=== PATIENT | female | born 1975 | race Caucasian/White ===

== ENCOUNTER 2021-03-28 05:47 | Observation (INO) | payer BC ==
[2021-03-28] MEDS ORDERED: HYDROmorphone 0.5 MG/0.5 ML SYRINGE IVP STA (06:20)
[2021-03-28] MEDS ORDERED: ONDANSETRON 4 MG/2 ML VIAL IVP STA (06:20)
[2021-03-28] MEDS ORDERED: SODIUM CHLORIDE 0.9% 1,000 ML IV STA ×2 (06:20→07:39)
--- NOTE | 2021-03-28 06:27 | ED ---
General Adult HPI - General Chief complaint: Abdominal Pain Stated complaint: Upper abd pain Time Seen by Provider: 03/28/21 06:03 Source: patient Mode of arrival: ambulatory Limitations: no limitations - History of Present Illness Initial comments: 46-year-old female without any significant past medical history presents to the emergency room for chief complaint of epigastric pain. Patient states she started to have epigastric pain at about 3:30 this morning or about 2 hours prior to arrival. Patient describes the pain as a squeezing pain in her e pigastric area. Patient denies any radiating pain. Denies pain radiating to the back. He denies tearing pain. Patient does admit to nausea and did vomit once. Patient reports this is happened a few times over the past month and her doctor thinks it is her gallbladder. She reports she is supposed to be having this evaluated but heard daughter just had a major surgery and she has been more focused on that. Patient denies fevers. Denies diarrhea.Patient has no other complaints at this time including shortness of breath, chest pain, nausea or vomiting, headache, or visual changes. - Related Data Home Medications Medication Instructions Recorded Confirmed No Known Home Medications 03/28/21 03/28/21 Allergies Allergy/AdvReac Type Severity Reaction Status Date / Time Sulfa (Sulfonamide Allergy Rash/Hives Verified 03/28/21 08:42 Antibiotics) Review of Systems ROS Statement: Those systems with pertinent positive or pertinent negative responses have been documented in the HPI. ROS Other: All systems not noted in ROS Statement are negative. Past Medical History Past Medical History: No Reported History Additional Past Medical History / Comment(s): CURRENTLY ON ANTIBIOTICS FOR RECENT UTI History of Any Multi-Drug Resistant Organisms: None Reported Past Surgical History: Hysterectomy, Tonsillectomy, Uterine Ablation Past Anesthesia/Blood Transfusion Reactions: No Reported Reaction Past Psychological History: No Psychological Hx Reported Smoking Status: Never smoker Past Alcohol Use History: Occasional Past Drug Use History: None Reported General Exam Limitations: no limitations General appearance: alert, anxious Head exam: Present: atraumatic, normocephalic, normal inspection Eye exam: Present: normal appearance, PERRL, EOMI. Absent: scleral icterus, conjunctival injection, periorbital swelling ENT exam: Present: normal exam, mucous membranes moist Neck exam: Present: normal inspection, full ROM. Absent: tenderness, meningismus, lymphadenopathy Respiratory exam: Present: normal lung sounds bilaterally. Absent: respiratory distress, wheezes, rales, rhonchi, stridor Cardiovascular Exam: Present: regular rate, normal rhythm, normal heart sounds. Absent: systolic murmur, diastolic murmur, rubs, gallop, clicks GI/Abdominal exam: Present: soft, tenderness (Epigastric and right upper quadrant tenderness), normal bowel sounds. Absent: distended, guarding, rebound, rigid Neurological exam: Present: alert Course Vital Signs 03/28/21 05:51 Temperature 98.3 F Pulse Rate 118 H Respiratory 32 H Rate Blood Pressure 144/81 O2 Sat by Pulse 96 Oximetry EKG Findings - EKG Comments: EKG Findings:: Normal sinus rhythm, ventricular rate 80, AR interval 122, QTC 429 Medical Decision Making - Medical Decision Making Patient presents initially tachycardic and tachypnea. This is likely secondary to pain and anxiety. Patient does have significant epigastric tenderness with right upper quadrant tenderness. Positive Krishnamurthy sign. No lower abdominal tenderness. Her evaluation was initiated immediately. CBC unremarkable. White blood cell count was normal. CMP does reveal mild transaminitis. Lactic acid noted at 3.5. X-ray of the chest and abdomen were obtained which were unremarkable. No free air. Gallbladder ultrasound was abnormal however. Patient does have small stones or sludge within the gallbladder and was a mildly thickened wall of 5 mm with positive sonographic Krishnamurthy sign. Consistent with acute cholecystitis. Patient was given 2 L of fluid. Blood cultures obtained. Patient started on Zosyn. She does not have a surgeon and therefore on-call general surgeon Dr. Brady was contacted who did accept patient. - Lab Data Result diagrams: 03/28/21 06:26 03/28/21 06:26 Lab Results 03/28/21 03/28/21 03/28/21 Range/Units 06:26 06:26 06:26 WBC 8.5 (3.8-10.6) k/uL RBC 5.26 (3.80-5.40) m/uL Hgb 15.7 (11.4-16.0) gm/dL Hct 46.1 H (34.0-46.0) % MCV 87.7 (80.0-100.0) fL MCH 30.0 (25.0-35.0) pg MCHC 34.2 (31.0-37.0) g/dL RDW 12.8 (11.5-15.5) % Plt Count 324 (150-450) k/uL MPV 8.1 Neutrophils % 60 % Lymphocytes % 27 % Monocytes % 8 % Eosinophils % 2 % Basophils % 1 % Neutrophils # 5.1 (1.3-7.7) k/uL Lymphocytes # 2.3 (1.0-4.8) k/uL Monocytes # 0.7 (0-1.0) k/uL Eosinophils # 0.2 (0-0.7) k/uL Basophils # 0.1 (0-0.2) k/uL Sodium (137-145) mmol/L Potassium (3.5-5.1) mmol/L Chloride (98-107) mmol/L Carbon Dioxide (22-30) mmol/L Anion Gap mmol/L BUN (7-17) mg/dL Creatinine (0.52-1.04) mg/dL Est GFR (CKD-EPI)AfAm (>60 ml/min/1.73 sqM) Est GFR (CKD-EPI)NonAf (>60 ml/min/1.73 sqM) Glucose (74-99) mg/dL Plasma Lactic Acid Wayne (0.7-2.0) mmol/L Calcium (8.4-10.2) mg/dL Total Bilirubin (0.2-1.3) mg/dL AST (14-36) U/L ALT (4-34) U/L Alkaline Phosphatase (38-126) U/L Total Protein (6.3-8.2) g/dL Albumin (3.5-5.0) g/dL Amylase (30-110) U/L Lipase (23-300) U/L Urine Color Yellow Urine Appearance Cloudy H (Clear) Urine pH 6.0 (5.0-8.0) Ur Specific Nichols 1.027 (1.001-1.035) Urine Protein Negative (Negative) Urine Glucose (UA) Negative (Negative) Urine Ketones 1+ H (Negative) Urine Blood Trace H (Negative) Urine Nitrite Negative (Negative) Urine Bilirubin Negative (Negative) Urine Urobilinogen 2.0 (<2.0) mg/dL Ur Leukocyte Esterase Negative (Negative) Urine RBC 5 (0-5) /hpf Urine WBC 2 (0-5) /hpf Ur Squamous Epith Cells 2 (0-4) /hpf Urine Mucus Occasional H (None) /hpf Urine HCG, Qual Not Detected (Not Detectd) 03/28/21 03/28/21 Range/Units 06:26 06:26 WBC (3.8-10.6) k/uL RBC (3.80-5.40) m/uL Hgb (11.4-16.0) gm/dL Hct (34.0-46.0) % MCV (80.0-100.0) fL MCH (25.0-35.0) pg MCHC (31.0-37.0) g/dL RDW (11.5-15.5) % Plt Count (150-450) k/uL MPV Neutrophils % % Lymphocytes % % Monocytes % % Eosinophils % % Basophils % % Neutrophils # (1.3-7.7) k/uL Lymphocytes # (1.0-4.8) k/uL Monocytes # (0-1.0) k/uL Eosinophils # (0-0.7) k/uL Basophils # (0-0.2) k/uL Sodium 141 (137-145) mmol/L Potassium 5.0 (3.5-5.1) mmol/L Chloride 108 H (98-107) mmol/L Carbon Dioxide 18 L (22-30) mmol/L Anion Gap 15 mmol/L BUN 11 (7-17) mg/dL Creatinine 0.80 (0.52-1.04) mg/dL Est GFR (CKD-EPI)AfAm >90 (>60 ml/min/1.73 sqM) Est GFR (CKD-EPI)NonAf 90 (>60 ml/min/1.73 sqM) Glucose 150 H (74-99) mg/dL Plasma Lactic Acid Wayne 3.5 H* (0.7-2.0) mmol/L Calcium 9.4 (8.4-10.2) mg/dL Total Bilirubin 0.7 (0.2-1.3) mg/dL AST 112 H (14-36) U/L ALT 133 H (4-34) U/L Alkaline Phosphatase 111 (38-126) U/L Total Protein 7.6 (6.3-8.2) g/dL Albumin 4.6 (3.5-5.0) g/dL Amylase 95 (30-110) U/L Lipase 132 (23-300) U/L Urine Color Urine Appearance (Clear) Urine pH (5.0-8.0) Ur Specific Nichols (1.001-1.035) Urine Protein (Negative) Urine Glucose (UA) (Negative) Urine Ketones (Negative) Urine Blood (Negative) Urine Nitrite (Negative) Urine Bilirubin (Negative) Urine Urobilinogen (<2.0) mg/dL Ur Leukocyte Esterase (Negative) Urine RBC (0-5) /hpf Urine WBC (0-5) /hpf Ur Squamous Epith Cells (0-4) /hpf Urine Mucus (None) /hpf Urine HCG, Qual (Not Detectd) Disposition Clinical Impression: Cholecystitis, Lactic acidosis Disposition: ADMITTED IP TO THIS HOSP Is patient prescribed a controlled substance at d/c from ED?: No Referrals: Jai Mcneil MD [Primary Care Provider] - 1-2 days Time of Disposition: 08:46
[2021-03-28 06:52] LABS: Basophils # (A) 0.1 k/uL (0-0.2); Basophils % (A) 1 %; Eosinophils # (A) 0.2 k/uL (0-0.7); Eosinophils % (A) 2 %; HCT 46.1 % (34.0-46.0); HGB 15.7 gm/dL (11.4-16.0); Lymphocytes # (A) 2.3 k/uL (1.0-4.8); Lymphocytes % (A) 27 %; MCHC 34.2 g/dL (31.0-37.0); MCV 87.7 fL (80.0-100.0); Mean Platelet Volume 8.1; Monocytes # (A) 0.7 k/uL (0-1.0); Monocytes % (A) 8 %; Neutrophils # (A) 5.1 k/uL (1.3-7.7); Neutrophils % (A) 60 %; Platelet Count 324 k/uL (150-450); RBC 5.26 m/uL (3.80-5.40); RDW 12.8 % (11.5-15.5); WBC 8.5 k/uL (3.8-10.6)
--- NOTE | 2021-03-28 06:54 | XR ---
EXAMINATION TYPE: XR chest 2V DATE OF EXAM: 03/28/2021 COMPARISON: NONE HISTORY: Chest pain into the stomach. TECHNIQUE: Frontal and lateral views of the chest are obtained. FINDINGS: Somewhat low lung volumes. There is no suspicious focal air space opacity, pleural effusio n, or pneumothorax seen. The cardiac silhouette size is within normal limits. The osseous structur es are intact. IMPRESSION: No acute cardiopulmonary process.
--- NOTE | 2021-03-28 06:55 | XR ---
EXAMINATION TYPE: XR KUB DATE OF EXAM: 03/28/2021 6:45 AM CLINICAL HISTORY: Epigastric pain. TECHNIQUE: Two Upright KUB images of the abdomen are obtained. COMPARISON: None. FINDINGS: Scattered gas is seen in non-distended small bowel loops. Gas and fecal material is seen in non-distended colon. There is no visceromegaly, pneumoperitoneum, or abnormal calcification apprecia taty. The lung bases are clear and the osseous structures are intact. IMPRESSION: Overall nonobstructive bowel gas pattern.
[2021-03-28] MEDS ORDERED: HYDROmorphone 1 MG/ML 1 ML SYRINGE IVP STA (07:08)
[2021-03-28 07:12] LABS: ALT 133 U/L (4-34); African American GFR (CKD) >90 (>60 ml/min/1.73 sqM); Amylase 95 U/L (30-110); Anion Gap 15 mmol/L; Blood Urea Nitrogen 11 mg/dL (7-17); Calcium 9.4 mg/dL (8.4-10.2); Carbon Dioxide 18 mmol/L (22-30); Chloride 108 mmol/L (98-107); Glucose 150 mg/dL (74-99); Lipase 132 U/L (23-300); Non-African American GFR(CKD) 90 (>60 ml/min/1.73 sqM); Sodium 141 mmol/L (137-145); Total Bilirubin 0.7 mg/dL (0.2-1.3)
[2021-03-28 07:35] LABS: AST 112 U/L (14-36); Albumin 4.6 g/dL (3.5-5.0); Alkaline Phosphatase 111 U/L (38-126); Total Protein 7.6 g/dL (6.3-8.2)
[2021-03-28] MEDS ORDERED: KETOROLAC 15 MG/ML 1 ML VIAL IVP STA (08:17)
[2021-03-28] MEDS ORDERED: LORazepam 2 MG/ML INJ IV STA ×2 (08:17→12:27)
--- NOTE | 2021-03-28 08:21 | US ---
EXAMINATION TYPE: US gallbladder DATE OF EXAM: 03/28/2021 COMPARISON: NONE CLINICAL HISTORY: pain. Severe epigastric pain. EXAM MEASUREMENTS: Liver Length: 11.1 cm Gallbladder Wall: 0.5 cm CBD: 0.3 cm Right Kidney: 9.6 x 5.2 x 5.0 cm Extensive overlying bowel gas, technically limited study. Pancreas: Obscured by bowel gas Liver: limited visualization, appears wnl Gallbladder: limited visualization, debris with comet tail artifact within, probable sludge, wall thi ckening Evidence for sonographic Krishnamurthy's sign: severe epigastric pain CBD: limited visualization Right Kidney: limited visualization, wnl as seen Suboptimal study. Extensive overlying bowel gas likely product of not normal prep. Pancreas suboptima lly evaluated. Visualized liver heterogeneous without ductal dilatation. Common bile duct not well se en, visualized portions not dilated. Gallbladder appears abnormal. Gallbladder shows internal mobile echoes suggesting small stones and/or sludge. Gallbladder wall mildly thickened at 5 mm with positive sonographic Krishnamurthy sign. IMPRESSION: Ultrasound findings consistent with acute cholecystitis given patient's symptoms of sever e epigastric pain.
[2021-03-28] MEDS ORDERED: PIPERACILLIN-TAZOBACTAM 3.375 GM in SODIUM CHLORIDE 0.9% 100 ML IVPB STA (08:34)
[2021-03-28 08:37] LABS: Appearance,Urine Cloudy (Clear); Bilirubin,Urine Negative (Negative); Blood,Urine Trace (Negative); Color,Urine Yellow; Glucose,Urine (UA) Negative (Negative); Ketones,Urine 1+ (Negative); Leukocyte Esterase,Urine Negative (Negative); Mucus,Urine Occasional /hpf; Nitrite,Urine Negative (Negative); Protein,Urine Negative (Negative); RBC,Urine 5 /hpf (0-5); Specific Gravity,Urine 1.027 (1.001-1.035); Squamous Epithelial Cell,Urine 2 /hpf (0-4); WBC,Urine 2 /hpf (0-5)
[2021-03-28] MEDS ORDERED: NALOXONE 0.4 MG/ML 1 ML VIAL IV PRN (08:50)
[2021-03-28] MEDS ORDERED: HYDROmorphone 1 MG/ML 1 ML SYRINGE IVP PRN (08:50)
[2021-03-28] MEDS ORDERED: ONDANSETRON 4 MG/2 ML VIAL IVP PRN (08:50)
[2021-03-28] MEDS: PANTOPRAZOLE 40 MG/10 ML VIAL IV SCH (11:19)
[2021-03-28] MEDS: SODIUM CHLORIDE 0.9% 1,000 ML IV SCH ×3 (11:20→23:40)
[2021-03-28] MEDS: PIPERACILLIN-TAZOBACTAM 3.375 GM in SODIUM CHLORIDE 0.9% 100 ML IVPB SCH ×2 (17:29→23:15)
[2021-03-28] MEDS ORDERED: SODIUM CHLORIDE 0.9% 2,000 ML IV ONE (18:56)
--- NOTE | 2021-03-28 18:56 | P.GSHP ---
History of Present Illness H&P Date: 03/28/21 CHIEF COMPLAINT: Acute cholecystitis HISTORY OF PRESENT ILLNESS: The patient is a 46 year old female who comes in a day history of epigastric and right upper quadrant abdominal pain. Her pain started after eating chicken teriyaki. She reports prior episode of epigastric pain and right upper quadrant abdominal pain in the last 2 years. She reports moderate to severe pain when she presented to the emergency room. Since admission and NPO status, her abdominal pain has improved. She still reports pressure along the chest. PAST MEDICAL HISTORY: See list and reviewed PAST SURGICAL HISTORY: See list and reviewed MEDICATIONS: See list and reviewed ALLERGIES: See list and reviewed SOCIAL HISTORY: See list and reviewed FAMILY HISTORY: See list and reviewed REVIEW OF ORGAN SYSTEMS: CONSTITUTIONAL: No fevers or chills. \ EYES: Denies any trouble with vision. No glasses. HEENT: No difficulties with hearing. No nosebleeds. No difficulty swallowing. RESPIRATORY: Denies pneumonia. Denies any troubles with breathing or dyspnea on exertion. CARDIOVASCULAR: Denies any chest pain, palpitations, or recent heart attacks. GASTROINTESTINAL: Has fatty food intolerance. Denies change in bowel habits and gas bloat. Has gastroesophageal reflux disease. GENITOURINARY: Denies any blood in urine or increased urinary frequency. NEUROLOGICAL: Denies any numbness or tingling along the distal extremities. No seizure disorders or headaches. MUSCULOSKELETAL: Denies any back pain, stiffness or joint arthritis. SKIN: No current skin cancer. No rash. PSYCHIATRIC: Denies current depression or suicidal thoughts. ENDOCRINE: Denies current thyroid disorders. Denies any blood sugar glucose intolerance. HEME/LYMPHATIC: Denies any lumps and bumps around the neck. No recent deep venou s thrombosis. ALLERGY/IMMUNOLOGY: No immunoglobulin therapy. No immune deficiencies. BREAST: Denies current breast lumps, pain or nipple discharge. Prior breast reduction. PHYSICAL EXAM: VITALS: Reviewed CONSTITUTIONAL: Well developed and in no acute distress. EYES: Conjuctivae without sclera icterus. Extraocular movements grossly intact. HEAD, EARS, NOSE, THROAT: Moist buccal mucosa. Head is atraumatic, normocephalic. Hears conversational speech. No nasal drainage. NECK: Supple. No JV distention. No thyroidomegaly. RESPIRATORY: Non-labored respirations and equal bilateral excursions. No gross wheezes. CARDIOVASCULAR: Regular rate and rhythm. Extremities without moderate edema. Palpable 2+ radial pulses. ABDOMEN: LYMPH: No neck lymphadenopathy. MUSCULOSKELETAL: Nail and fingers with good capillary refill. SKIN: Warm and well perfused with good skin turgor. NEUROLOGIC: Cranial nerves II through XII grossly intact. Sensation upper and extremities intact. No focal or lateralizing signs. PSYCH: Appropriate affect. Alert and oriented to person, place and time. Displays appropriate insight. CLINCAL LABS: Reviewed. AST and ALT elevated. WBC normal. Lactic acid elevated. IMAGING: Independently reviewed of right upper quadrant ultrasound with thickened gallbladder wall over 3-mm. Multiple gallstones identified. This is my independent interpretation. RADIOLOGY: Report reviewed of ultrasound with thickened gallbladder wall 5-mm and clinical acute cholecystitis. ASSESSMENT: 1. Acute cholecystitis due to gallstones 2. Lactic acidosis 3. Elevated liver enzymes. PLAN: 1. She comes in with acute cholecystitis and lactic acidosis. May have clear liquid diet tonight and for the morning. 2. NPO for lunch tomorrow. 3. Robotic cholecystectomy described with risks and benefits of common bile duct injury, subtotal cholecystectomy, infection, described. Past Medical History Past Medical History: No Reported History Additional Past Medical History / Comment(s): UTI, nephrolithiasis during /pt passed on her own. History of Any Multi-Drug Resistant Organisms: None Reported Past Surgical History: Breast Surgery, Hysterectomy, Tonsillectomy, Uterine Ablation Additional Past Surgical History / Comment(s): D&C x2, endometrial biopsy, bilateral breast reductions. Past Anesthesia/Blood Transfusion Reactions: No Reported Reaction Smoking Status: Never smoker - Past Family History Father Family Medical History: Congestive Heart Failure (CHF), Diabetes Mellitus Mother Family Medical History: Musculoskeletal Disorder, Neurologic Disorder Additional Family Medical History / Comment(s): MS Medications and Allergies Home Medications Medication Instructions Recorded Confirmed Type No Known Home Medications 03/28/21 03/28/21 History Allergies Allergy/AdvReac Type Severity Reaction Status Date / Time Sulfa (Sulfonamide Allergy Rash/Hives Verified 03/28/21 08:42 Antibiotics) Surgical - Exam Vital Signs Temp Pulse Resp BP Pulse Ox 98.3 F 118 H 32 H 144/81 96 03/28/21 05:51 03/28/21 05:51 03/28/21 05:51 03/28/21 05:51 03/28/21 05:51 Results - Labs 03/28/21 06:26 03/28/21 06:26 Abnormal Lab Results - Last 24 Hours (Table) 03/28/21 03/28/21 03/28/21 Range/Units 06:26 06:26 06:26 Hct 46.1 H (34.0-46.0) % Chloride 108 H (98-107) mmol/L Carbon Dioxide 18 L (22-30) mmol/L Glucose 150 H (74-99) mg/dL Plasma Lactic Acid Wayne (0.7-2.0) mmol/L AST 112 H (14-36) U/L ALT 133 H (4-34) U/L Urine Appearance Cloudy H (Clear) Urine Ketones 1+ H (Negative) Urine Blood Trace H (Negative) Urine Mucus Occasional H (None) /hpf 03/28/21 Range/Units 06:26 Hct (34.0-46.0) % Chloride (98-107) mmol/L Carbon Dioxide (22-30) mmol/L Glucose (74-99) mg/dL Plasma Lactic Acid Wayne 3.5 H* (0.7-2.0) mmol/L AST (14-36) U/L ALT (4-34) U/L Urine Appearance (Clear) Urine Ketones (Negative) Urine Blood (Negative) Urine Mucus (None) /hpf Diabetes panel 03/28/21 Range/Units 06:26 Sodium 141 (137-145) mmol/L Potassium 5.0 (3.5-5.1) mmol/L Chloride 108 H (98-107) mmol/L Carbon Dioxide 18 L (22-30) mmol/L BUN 11 (7-17) mg/dL Creatinine 0.80 (0.52-1.04) mg/dL Glucose 150 H (74-99) mg/dL Calcium 9.4 (8.4-10.2) mg/dL AST 112 H (14-36) U/L ALT 133 H (4-34) U/L Alkaline Phosphatase 111 (38-126) U/L Total Protein 7.6 (6.3-8.2) g/dL Albumin 4.6 (3.5-5.0) g/dL Calcium panel 03/28/21 Range/Units 06:26 Calcium 9.4 (8.4-10.2) mg/dL Albumin 4.6 (3.5-5.0) g/dL Pituitary panel 03/28/21 Range/Units 06:26 Sodium 141 (137-145) mmol/L Potassium 5.0 (3.5-5.1) mmol/L Chloride 108 H (98-107) mmol/L Carbon Dioxide 18 L (22-30) mmol/L BUN 11 (7-17) mg/dL Creatinine 0.80 (0.52-1.04) mg/dL Glucose 150 H (74-99) mg/dL Calcium 9.4 (8.4-10.2) mg/dL Adrenal panel 03/28/21 Range/Units 06:26 Sodium 141 (137-145) mmol/L Potassium 5.0 (3.5-5.1) mmol/L Chloride 108 H (98-107) mmol/L Carbon Dioxide 18 L (22-30) mmol/L BUN 11 (7-17) mg/dL Creatinine 0.80 (0.52-1.04) mg/dL Glucose 150 H (74-99) mg/dL Calcium 9.4 (8.4-10.2) mg/dL Total Bilirubin 0.7 (0.2-1.3) mg/dL AST 112 H (14-36) U/L ALT 133 H (4-34) U/L Alkaline Phosphatase 111 (38-126) U/L Total Protein 7.6 (6.3-8.2) g/dL Albumin 4.6 (3.5-5.0) g/dL Assessment and Plan (1) Acute cholecystitis due to biliary calculus Current Visit: Yes Status: Acute Code(s): K80.00 - CALCULUS OF GALLBLADDER W ACUTE CHOLECYST W/O OBSTRUCTION SNOMED Code(s): 15945125238039 (2) Elevated liver enzymes Current Visit: Yes Status: Acute Code(s): R74.8 - ABNORMAL LEVELS OF OTHER SERUM ENZYMES SNOMED Code(s): 067637814 (3) Lactic acidosis Current Visit: Yes Status: Acute Code(s): E87.2 - ACIDOSIS SNOMED Code(s): 05772663
[2021-03-28] MEDS: ACETAMINOPHEN IV (For NPO) 1,000 MG in EMPTY BAG 1 BAG IVPB SCH ×2 (19:28→23:15)
[2021-03-29] MEDS: ACETAMINOPHEN IV (For NPO) 1,000 MG in EMPTY BAG 1 BAG IVPB SCH ×2 (05:56→13:14)
[2021-03-29] MEDS ORDERED: SCOPOLAMINE 1.5MG/72HR PATCH TRANSDERM SCH (06:15)
[2021-03-29] MEDS: LACTATED RINGERS 1,000 ML IV SCH (07:52)
[2021-03-29] MEDS: HEPARIN SODIUM,PORCINE/PF 5,000 UNIT/0.5 ML SYRINGE SQ SCH ×2 (08:13→20:03)
[2021-03-29] MEDS: ONDANSETRON 4 MG/2 ML VIAL IVP SCH ×4 (08:13→23:11)
[2021-03-29] MEDS: PANTOPRAZOLE 40 MG/10 ML VIAL IV SCH (08:13)
[2021-03-29] MEDS: PIPERACILLIN-TAZOBACTAM 3.375 GM in SODIUM CHLORIDE 0.9% 100 ML IVPB SCH ×3 (08:13→23:10)
[2021-03-29] MEDS: SODIUM CHLORIDE 0.9% 1,000 ML IV SCH ×3 (08:14→22:13)
[2021-03-29 09:58] LABS: Basophils # (A) 0.06 X 10*3/uL (0.00-0.10); Eosinophils # (A) 0.22 X 10*3/uL (0.04-0.35); Eosinophils % (A) 3.5 %; HCT 41.9 % (37.2-46.3); Lymphocytes # (A) 2.33 X 10*3/uL (0.90-5.00); Lymphocytes % (A) 37.3 %; MCH 28.9 pg (27.0-32.0); MCV 93.1 fL (80.0-97.0); Mean Platelet Volume 11.6 fL (9.5-12.2); Monocytes # (A) 0.65 X 10*3/uL (0.20-1.00); Monocytes % (A) 10.4 %; Neutrophils # (A) 2.98 X 10*3/uL (1.80-7.70); Neutrophils % (A) 47.6 %; Platelet Count 239 X 10*3/uL (140-440); RDW 13.4 % (11.5-14.5); WBC 6.25 X 10*3/uL (4.50-10.00)
[2021-03-29 10:30] LABS: African American GFR (CKD) 103.2 (60.0-200.0); Albumin 3.3 g/dL (3.80-4.90); Albumin/Globulin Ratio 1.74 (1.60-3.17); Anion Gap 6.6 mmol/L (4.00-12.00); Calcium 8.8 mg/dL (8.7-10.3); Carbon Dioxide 22.4 mmol/L (21.6-31.8); Globulin 1.9 g/dL (1.6-3.3); Potassium 4.1 mmol/L (3.5-5.5); Total Protein 5.2 g/dL (6.2-8.2)
[2021-03-29] MEDS ORDERED: IV FLUID CONTINUATION 200 ML IV ONE (14:55)
[2021-03-29] MEDS ORDERED: DEXAMETHASONE SOD PHOSPHATE 4 MG/ML 1 ML VIAL IVP ONE (15:34)
[2021-03-29] MEDS ORDERED: MIDAZOLAM 2 MG/2 ML VIAL IVP ONE (15:35)
[2021-03-29] MEDS ORDERED: LACTATED RINGERS 1,000 ML IV ONE ×2 (16:29→18:18)
--- NOTE | 2021-03-29 17:09 | P.HPADDEND ---
H&P Addendum H&P Addendum Date: 03/29/21 Benefits and risks of robotic cholecystectomy described. LFTs and labs reviewed demonstrating improvement. Total bilirubin is mildly elevated. She reports moderate improvement of her epigastric pain. Discharge criteria are reviewed including able to tolerate diet, pain being controlled and voiding spontaneously also reviewed. All questions addressed and answered.
[2021-03-29] MEDS ORDERED: SUCCINYLCHOLINE CHLORIDE 100 MG/5 ML SYR IV ONE (17:17)
[2021-03-29] MEDS ORDERED: MIDAZOLAM 2 MG/2 ML VIAL ONE (17:17)
[2021-03-29] MEDS ORDERED: HYDROmorphone (PF) 1 MG/ML ONE (17:17)
[2021-03-29] MEDS ORDERED: INDOCYANINE GREEN 25 MG VIAL IV ONE (17:17)
[2021-03-29] MEDS ORDERED: ROCURONIUM 10 MG/ML (5 ML VIAL) IV ONE (17:17)
[2021-03-29] MEDS ORDERED: NEOSTIGMINE 1 MG/ML 10 ML VIAL ONE (17:17)
[2021-03-29] MEDS ORDERED: GLYCOPYRROLATE 0.2 MG/ML 2 ML VIAL ONE (17:17)
[2021-03-29] MEDS ORDERED: KETOROLAC 15 MG/ML 1 ML VIAL ONE (17:17)
[2021-03-29] MEDS ORDERED: PROPOFOL 10 MG/ML 20 ML VIAL IV ONE (17:17)
[2021-03-29] MEDS ORDERED: LIDOCAINE 1% INJ 10MG/ML (20 ML MDV) ONE (17:17)
[2021-03-29] MEDS ORDERED: fentaNYL (PF) 50 MCG/ML 2 ML AMP ONE (17:17)
[2021-03-29] MEDS ORDERED: LIDOCAINE 2%-EPI 1:100,000 20 ML VIAL SQ ONE (17:41)
[2021-03-29] MEDS ORDERED: ONDANSETRON 4 MG/2 ML VIAL IVP ONE (18:46)
[2021-03-29] MEDS: diphenhydrAMINE 50 MG/ML 1 ML VIAL IVP ONE ×2 (18:47→19:04)
[2021-03-29] MEDS ORDERED: METOCLOPRAMIDE 5 MG/ML 2 ML VIAL IVP PRN (18:57)
--- NOTE | 2021-03-29 19:02 | P.OP ---
Date of Procedure: 03/29/21 Description of Procedure: SURGEON: DOMENIC RAMOS MD PREOPERATIVE DIAGNOSES: 1. Acute cholecystitis due to cystic duct obstruction from gallstones 2. Lactic acidosis 3. Right upper quadrant/epigastric pain 4. Elevated liver enzymes POSTOPERATIVE DIAGNOSES: 1. Acute cholecystitis due to cystic duct obstruction from gallstones 2. Lactic acidosis 3. Right upper quadrant/epigastric pain 4. Elevated liver enzymes 5. Peritoneal adhesions, right upper quadrant OPERATION: Robotic-assisted da Zoya Xi laparoscopic cholecystectomy, multiport with FIREFLY ESTIMATED BLOOD LOSS: 10 mL. SPECIMENS REMOVED: Gallbladder. COMPLICATIONS: None. OPERATIVE FINDINGS: 1. Scarring over gallbladder with peritoneal adhesions, pericholecystic with features of chronic cholecystitis INDICATIONS: The patient is a 46-year-old female who presents with acute cholecystitis per ultrasound of gallbladder. Robotic assisted laparoscopic approach was described. Benefits and risks of the procedure including but not limited to bleeding, infection, injury to the biliary tree was described. Inf ormed consent was obtained. DESCRIPTION OF PROCEDURE: Patient was brought to the operating room, placed in supine position. After general induction, the abdomen had been prepped and draped in standard sterile fashion. The robotic da Zoya XI system was primed. After a timeout protocol was performed, the patient had been prepped and draped in standard sterile fashion. The patient was injected with indocyanine green. A 5 mm 0 degrees laparoscopic trocar entry was performed along the left upper quadrant. The abdomen insufflated to 15 mmHg pressure which was tolerated well. Diagnostic laparoscopy demonstrated no injury to bowel viscera or mesentery. The liver surface was unremarkable. Next, two 8 mm robotic ports were placed along the right upper abdomen. The camera 8-mm port was maintained along the epigastrium. Another 8 mm port was placed along the left upper abdominal wall after exchanging the 5 mm port. Please note that the ports were placed at least 10 to 15 cm away from the target anatomy of the gallbladder. The robot was docked along the left lateral abdomen. The patient was repositioned in reverse Trendelenburg position. Using a grasper for arm 3, a grasper for arm 4, including hook cautery for arm 1, the robotic system was docked and primed as described. Instruments were interchanged by the registrar assistant including hook cautery, Bovie cautery and clip appliers. I had sat at the console. The gallbladder was scarred with peritoneal adhesions. Lysis of adhesions was performed to free the gallbladder from the surrounding tissues. Next attention was brought to the infundibulum and cystic structures. The infundibulum and cystic duct were dissected free from surrounding tissues. The cystic duct was isolated. FIREFLY was used to identify the cystic artery and cystic structures. A critical view of safety was obtained. Large PLASTIC clips were used throughout the entire case. Using a clip polisher hand, 2 clips were placed at the junction of the infundibulum and cystic duct. The cystic duct was divided between clips. Next, the cystic artery was similarly clipped and cauterized. Electro-Bovie cautery was used to remove the gallbladder from the hepatic fossa. Hemostasis was checked and found to be adequate. The robot was undocked. I re-scrubbed into the case. Using a 10 mm Endo Catch bag via the left upper quadrant incision, the specimen was removed from the abdominal cavity. All pneumoperitoneum instruments were evacuated from the abdominal cavity. The incisions were reapproximated using 4-0 Monocryl in an interrupted subcuticular fashion. Fascial defects were less than 8 mm in size. Please note along the trocar sites, local anesthetic was placed as a field block prior to insertion of all instruments. Liquid glue was applied to the skin. At the end of the procedure needle, sponge, and instrument count had been verified correct by the surgical product sales consultant. The patient was transferred to postanesthesia care unit in stable condition. Intraoperative films were shared with the patient's family.
[2021-03-29] MEDS ORDERED: METOCLOPRAMIDE 5 MG/ML 2 ML VIAL IVP ONE (19:03)
[2021-03-29] MEDS: KETOROLAC 15 MG/ML 1 ML VIAL IVP SCH ×2 (19:51→23:11)
[2021-03-29] MEDS: ACETAMINOPHEN TAB 325 MG TAB PO SCH (23:37)
[2021-03-30] MEDS: KETOROLAC 15 MG/ML 1 ML VIAL IVP SCH (05:40)
[2021-03-30] MEDS: ONDANSETRON 4 MG/2 ML VIAL IVP SCH (05:41)
[2021-03-30] MEDS: ACETAMINOPHEN TAB 325 MG TAB PO SCH (05:41)
[2021-03-30] MEDS: LACTATED RINGERS 1,000 ML IV SCH (05:43)
[2021-03-30] MEDS: HEPARIN SODIUM,PORCINE/PF 5,000 UNIT/0.5 ML SYRINGE SQ SCH (08:13)
[2021-03-30] MEDS: PANTOPRAZOLE 40 MG/10 ML VIAL IV SCH (08:14)
[2021-03-30] MEDS: PIPERACILLIN-TAZOBACTAM 3.375 GM in SODIUM CHLORIDE 0.9% 100 ML IVPB SCH (08:14)
[2021-03-30 08:17] VITALS: BP 129/76; PULSE 64; RESP 18; TEMP 97.7
[2021-03-30] MEDS: SODIUM CHLORIDE 0.9% 1,000 ML IV SCH (10:09)
--- NOTE | 2021-03-30 11:31 | P.DS ---
Providers Date of admission: 03/28/21 08:50 Expected date of discharge: 03/30/21 Attending physician: Dimple Brady Consults: 03/29/21 07:58 Consult Physician Routine Consulting Provider: [facility] Consult Reason/Comments: [facility] Do you want consulting provider notified?: Yes Primary care physician: Jai Mcneil - Discharge Diagnosis(es) (1) Acute cholecystitis due to biliary calculus Status: Acute (2) Elevated liver enzymes Status: Acute (3) Lactic acidosis Status: Acute Hospital Course: POSTOPERATIVE DIAGNOSES: 1. Acute cholecystitis due to cystic duct obstruction from gallstones 2. Lactic acidosis 3. Right upper quadrant/epigastric pain 4. Elevated liver enzymes 5. Peritoneal adhesions, right upper quadrant INDICATIONS: The patient is a 46-year-old female presented with acute david cystitis and Thuan-en-Y acidosis as well as moderate to severe epigastric and right upper quadrant abdominal pain after eating fatty meal. She was admitted and placed on IV antibiotics. LFTs was also moderately elevated. During admission, liver enzymes had improved. Robotic cholecystectomy was described to treat acute cholecystitis due to biliary calculus. After robotic cholecystectomy, she was tolerating diet. Discharge instructions were reviewed. Follow up in the office 1 week described. Procedures: OPERATION: Robotic-assisted da Zoya Xi laparoscopic cholecystectomy, multiport with FIREFLY ESTIMATED BLOOD LOSS: 10 mL. SPECIMENS REMOVED: Gallbladder. COMPLICATIONS: None. OPERATIVE FINDINGS: 1. Scarring over gallbladder with peritoneal adhesions, pericholecystic with features of chronic cholecystitis Patient Condition at Discharge: Good Plan - Discharge Summary Discharge Rx Participant: Yes New Discharge Prescriptions: New Ibuprofen [Motrin] 600 mg PO Q8HR PRN #30 tab PRN Reason: Pain Acetaminophen Tab [Tylenol Tab] 1,000 mg PO Q6HR PRN #30 tablet PRN Reason: Pain Discharge Medication List Acetaminophen Tab [Tylenol Tab] 1,000 mg PO Q6HR PRN #30 tablet 03/29/21 [Rx] Ibuprofen [Motrin] 600 mg PO Q8HR PRN #30 tab 03/29/21 [Rx] Follow up Appointment(s)/Referral(s): Dimple Brady MD [STAFF PHYSICIAN] - 04/03/21 8:30 am Jai Mcneil MD [Primary Care Provider] - 1-2 days (Office closed. Please call Friday for your appointment. Thank you.) Patient Instructions/Handouts: *[facility] - Managing Your Pain After Surgery Without Opioids, Low Fat Diet (DC), Laparoscopic Cholecystectomy (DC) Activity/Diet/Wound Care/Special Instructions: Recommend low-fat diet for the next 2 days. No lifting over 10 pounds in 2 weeks until April 12. May shower. No bath tub soaks for two weeks until April 12. Diet as tolerated. Use Tylenol, simethicone and ibuprofen or Aleve scheduled for the next 24-48 hours for best pain relief. Use ice along incisions for today to prevent swelling. Discharge Disposition: HOME SELF-CARE
[2021-03-30 11:57] LABS: Basophils # (A) 0.01 X 10*3/uL (0.00-0.10); Basophils % (A) 0.1 %; Eosinophils # (A) 0 X 10*3/uL (0.04-0.35); Eosinophils % (A) 0 %; HCT 42.8 % (37.2-46.3); HGB 13.7 g/dL (12.0-15.0); Lymphocytes # (A) 1.49 X 10*3/uL (0.90-5.00); MCH 29.7 pg (27.0-32.0); MCV 92.6 fL (80.0-97.0); Mean Platelet Volume 11.8 fL (9.5-12.2); Monocytes # (A) 0.61 X 10*3/uL (0.20-1.00); Monocytes % (A) 4.5 %; Neutrophils # (A) 11.34 X 10*3/uL (1.80-7.70); Neutrophils % (A) 83.3 %; Platelet Count 267 X 10*3/uL (140-440); RBC 4.62 X 10*6/uL (4.10-5.20); RDW 13.1 % (11.5-14.5)
[2021-03-30 12:36] LABS: African American GFR (CKD) 103.2 (60.0-200.0); Albumin 3.9 g/dL (3.80-4.90); Albumin/Globulin Ratio 1.56 (1.60-3.17); Anion Gap 11.3 mmol/L (4.00-12.00); BUN/Creat Ratio 8.75 Ratio (12.00-20.00); Calcium 8.8 mg/dL (8.7-10.3); Carbon Dioxide 20.7 mmol/L (21.6-31.8); Globulin 2.5 g/dL (1.6-3.3); Total Protein 6.4 g/dL (6.2-8.2)
== END 2021-03-30 11:51 | disposition home or self-care (01) ==
LOC: EC 05:47 → 6NMEDSUR 08:50 → 4SSUR 14:59 → OBSVTOIN 03-29 18:58 → INTOOBSV 03-29 18:58 → UNDODISIN 03-30 11:51
PROVIDERS: ADMIT Surgery Plastic and Reconstructive Surgery; ATTEND Surgery Plastic and Reconstructive Surgery
PROC: 0FT44ZZ Resection of Gallbladder, Percutaneous Endoscopic Approach (ICD-10-PCS; principal; 2021-03-29 15:45)
PROC: 8E0W4CZ Robotic Assisted Procedure of Trunk Region, Percutaneous Endoscopic Approach (ICD-10-PCS; principal; 2021-03-29 15:45)
DX: K80.11 Calculus of gallbladder with chronic cholecystitis with obstruction (principal); E87.2 Acidosis; K66.0 Peritoneal adhesions (postprocedural) (postinfection); F41.9 Anxiety disorder, unspecified; Z20.822 Contact with and (suspected) exposure to COVID-19; Z88.2 Allergy status to sulfonamides; Z87.442 Personal history of urinary calculi; Z87.440 Personal history of urinary (tract) infections; Z98.890 Other specified postprocedural states; Z90.710 Acquired absence of both cervix and uterus; Z83.3 Family history of diabetes mellitus; Z82.49 Family history of ischemic heart disease and other diseases of the circulatory system
CPT/HCPCS: 47562; S2900; 36415; 71046; 74018; 76705; 80053; 81001; 81025; 82150; 83605; 83690; 84484; 85025; 87635; 88304; 93005; 96361; 96374; 96375; 96376; 99285

== ENCOUNTER 2022-08-23 21:33 | Emergency (ER) | payer BC ==
--- NOTE | 2022-08-23 22:00 | ED ---
Abdominal Pain HPI - General Chief Complaint: Abdominal Pain Stated Complaint: Back pain Time Seen by Provider: 08/23/22 21:45 Source: patient, RN notes reviewed, old records reviewed Mode of arrival: ambulatory Limitations: no limitations - History of Present Illness Initial Comments: This is a 47-year-old female to the emergency department for evaluation severe epigastric abdominal pain cramping, severe. Sharp pain. Patient has history of gallbladder surgery, symptoms began tonight after dinner and it came on strong and suddenly then went away and then came on again worse. Patient did have episode of vomiting did have a bowel movement today normal complaints MD Complaint: abdominal pain -: hour(s) Location: diffuse, periumbilical, RUQ Radiation: R flank, back Migration to: RUQ, epigastric, R flank Severity: severe Severity scale (1-10): 10 Quality: cramping, stabbing, aching Consistency: intermittent Improves With: nothing Worsens With: nothing Context: recent surgery/procedure (historyof gallbladder surgery) Associated Symptoms: nausea Treatments Prior to Arrival: NSAIDs - Related Data Home Medications Medication Instructions Recorded Confirmed Ketorolac [Toradol] 10 mg PO ONCE PRN 08/23/22 08/23/22 Allergies Allergy/AdvReac Type Severity Reaction Status Date / Time Sulfa (Sulfonamide Allergy Rash/Hives Verified 08/23/22 22:34 Antibiotics) Review of Systems ROS Statement: Those systems with pertinent positive or pertinent negative responses have been documented in the HPI. ROS Other: All systems not noted in ROS Statement are negative. Past Medical History Past Medical History: No Reported History Additional Past Medical History / Comment(s): UTI, nephrolithiasis during /pt passed on her own. History of Any Multi-Drug Resistant Organisms: None Reported Past Surgical History: Breast Surgery, Cholecystectomy, Hysterectomy, Tonsillectomy, Uterine Ablation Additional Past Surgical History / Comment(s): D&C x2, endometrial biopsy, bilateral breast reductions. Past Anesthesia/Blood Transfusion Reactions: No Reported Reaction Past Psychological History: No Psychological Hx Reported Smoking Status: Never smoker Past Alcohol Use History: Occasional Past Drug Use History: None Reported - Past Family History Father Family Medical History: Congestive Heart Failure (CHF), Diabetes Mellitus Mother Family Medical History: Musculoskeletal Disorder, Neurologic Disorder Additional Family Medical History / Comment(s): MS General Exam Limitations: no limitations General appearance: alert, in no apparent distress Head exam: Present: atraumatic, normocephalic, normal inspection Eye exam: Present: normal appearance, PERRL, EOMI. Absent: scleral icterus, conjunctival injection, periorbital swelling ENT exam: Present: normal exam, mucous membranes moist Neck exam: Present: normal inspection. Absent: tenderness, meningismus, lymphadenopathy Respiratory exam: Present: normal lung sounds bilaterally. Absent: respiratory distress, wheezes, rales, rhonchi, stridor Cardiovascular Exam: Present: regular rate, normal rhythm, normal heart sounds. Absent: systolic murmur, diastolic murmur, rubs, gallop, clicks GI/Abdominal exam: Present: soft, normal bowel sounds. Absent: distended, tenderness, guarding, rebound, rigid Extremities exam: Present: normal inspection, full ROM, normal capillary refill. Absent: tenderness, pedal edema, joint swelling, calf tenderness Back exam: Present: normal inspection Neurological exam: Present: alert, oriented X3, CN II-XII intact Psychiatric exam: Present: normal affect, normal mood Skin exam: Present: warm, dry, intact, normal color. Absent: rash Course Vital Signs 08/23/22 08/23/22 08/23/22 21:39 22:19 22:56 Temperature 97.5 F L Pulse Rate 82 76 75 Respiratory 18 32 H 20 Rate Blood Pressure 130/80 131/90 131/90 O2 Sat by Pulse 99 96 98 Oximetry 08/23/22 08/24/22 23:50 01:11 Temperature Pulse Rate 72 70 Respiratory 16 16 Rate Blood Pressure 125/91 125/91 O2 Sat by Pulse 99 98 Oximetry - Reevaluation(s) Reevaluation #1: 08/24/22 01:43 Medical records reviewed Reevaluation #2: 08/24/22 01:43 Patient currently is adequate pain control Reevaluation #3: 08/24/22 01:44 Patient informed of results questions have been answered Medical Decision Making - Medical Decision Making 47 female DF for evaluation of severe epigastric pain, fluctuating intermitted abdominal pain that came on severely twice tonight improving here in the emergency department if not resolved. Patient did have episode of vomiting with no change in symptoms CT scans ultrasound lab values are negative. Patient does have history of cholecystectomy no retained stone - Lab Data Result diagrams: 08/23/22 22:18 08/23/22 22:18 Lab Results 08/23/22 08/23/22 08/23/22 Range/Units 22:18 22:18 22:18 WBC 12.7 H (3.8-10.6) k/uL RBC 4.97 (3.80-5.40) m/uL Hgb 14.3 (11.4-16.0) gm/dL Hct 44.2 (34.0-46.0) % MCV 89.1 (80.0-100.0) fL MCH 28.8 (25.0-35.0) pg MCHC 32.3 (31.0-37.0) g/dL RDW 12.8 (11.5-15.5) % Plt Count 378 (150-450) k/uL MPV 8.5 Neutrophils % 65 % Lymphocytes % 23 % Monocytes % 6 % Eosinophils % 5 % Basophils % 1 % Neutrophils # 8.3 H (1.3-7.7) k/uL Lymphocytes # 2.9 (1.0-4.8) k/uL Monocytes # 0.7 (0-1.0) k/uL Eosinophils # 0.6 (0-0.7) k/uL Basophils # 0.1 (0-0.2) k/uL PT 10.1 (9.0-12.0) sec INR 0.9 (<1.2) APTT 27.5 (22.0-30.0) sec Sodium 138 (137-145) mmol/L Potassium 4.1 (3.5-5.1) mmol/L Chloride 100 (98-107) mmol/L Carbon Dioxide 24 (22-30) mmol/L Anion Gap 14 mmol/L BUN 17 (7-17) mg/dL Creatinine 0.74 (0.52-1.04) mg/dL Est GFR (CKD-EPI)AfAm >90 (>60 ml/min/1.73 sqM) Est GFR (CKD-EPI)NonAf >90 (>60 ml/min/1.73 sqM) Glucose 136 H (74-99) mg/dL Lactic Ac Sepsis Rflx Plasma Lactic Acid Wayne (0.7-2.0) mmol/L Calcium 9.4 (8.4-10.2) mg/dL Total Bilirubin 0.4 (0.2-1.3) mg/dL AST 99 H (14-36) U/L ALT 112 H (4-34) U/L Alkaline Phosphatase 251 H (38-126) U/L Total Protein 7.4 (6.3-8.2) g/dL Albumin 4.4 (3.5-5.0) g/dL Amylase 103 (30-110) U/L Lipase 115 (23-300) U/L 08/23/22 08/23/22 Range/Units 22:18 23:04 WBC (3.8-10.6) k/uL RBC (3.80-5.40) m/uL Hgb (11.4-16.0) gm/dL Hct (34.0-46.0) % MCV (80.0-100.0) fL MCH (25.0-35.0) pg MCHC (31.0-37.0) g/dL RDW (11.5-15.5) % Plt Count (150-450) k/uL MPV Neutrophils % % Lymphocytes % % Monocytes % % Eosinophils % % Basophils % % Neutrophils # (1.3-7.7) k/uL Lymphocytes # (1.0-4.8) k/uL Monocytes # (0-1.0) k/uL Eosinophils # (0-0.7) k/uL Basophils # (0-0.2) k/uL PT (9.0-12.0) sec INR (<1.2) APTT (22.0-30.0) sec Sodium (137-145) mmol/L Potassium (3.5-5.1) mmol/L Chloride (98-107) mmol/L Carbon Dioxide (22-30) mmol/L Anion Gap mmol/L BUN (7-17) mg/dL Creatinine (0.52-1.04) mg/dL Est GFR (CKD-EPI)AfAm (>60 ml/min/1.73 sqM) Est GFR (CKD-EPI)NonAf (>60 ml/min/1.73 sqM) Glucose (74-99) mg/dL Lactic Ac Sepsis Rflx Y Plasma Lactic Acid Wayne 2.6 H* (0.7-2.0) mmol/L Calcium (8.4-10.2) mg/dL Total Bilirubin (0.2-1.3) mg/dL AST (14-36) U/L ALT (4-34) U/L Alkaline Phosphatase (38-126) U/L Total Protein (6.3-8.2) g/dL Albumin (3.5-5.0) g/dL Amylase (30-110) U/L Lipase (23-300) U/L - EKG Data -: EKG Interpreted by Me (EKG is sinus 94 OR 125 QRS 72 QTC 390) - Radiology Data Radiology results: report reviewed (Ultrasound gallbladder CT head and pelvis negative for acute disease), image reviewed Disposition Clinical Impression: Abdominal pain Disposition: HOME SELF-CARE Condition: Good Instructions (If sedation given, give patient instructions): Abdominal Pain (ED) Is patient prescribed a controlled substance at d/c from ED?: No Referrals: None,Stated [REFERRING] - 1-2 days Time of Disposition: 01:35
[2022-08-23] MEDS ORDERED: ONDANSETRON 4 MG/2 ML VIAL IVP STA (22:02)
[2022-08-23] MEDS ORDERED: KETOROLAC 15 MG/ML 1 ML VIAL IVP STA (22:02)
[2022-08-23] MEDS ORDERED: MORPHINE SULFATE 4 MG/ML SYRINGE IVP STA (22:02)
[2022-08-23] MEDS ORDERED: SODIUM CHLORIDE 0.9% 1,000 ML IV STA (22:03)
[2022-08-23 22:41] LABS: Basophils # (A) 0.1 k/uL (0-0.2); Basophils % (A) 1 %; Eosinophils # (A) 0.6 k/uL (0-0.7); Eosinophils % (A) 5 %; HCT 44.2 % (34.0-46.0); HGB 14.3 gm/dL (11.4-16.0); Lymphocytes # (A) 2.9 k/uL (1.0-4.8); Lymphocytes % (A) 23 %; MCH 28.8 pg (25.0-35.0); MCHC 32.3 g/dL (31.0-37.0); MCV 89.1 fL (80.0-100.0); Mean Platelet Volume 8.5; Monocytes # (A) 0.7 k/uL (0-1.0); Monocytes % (A) 6 %; Neutrophils # (A) 8.3 k/uL (1.3-7.7); Neutrophils % (A) 65 %; Platelet Count 378 k/uL (150-450); RBC 4.97 m/uL (3.80-5.40); RDW 12.8 % (11.5-15.5); WBC 12.7 k/uL (3.8-10.6)
[2022-08-23 23:02] LABS: INR 0.9 (<1.2); Partial Thromboplastin Time 27.5 sec (22.0-30.0); Prothrombin Time 10.1 sec (9.0-12.0)
[2022-08-23 23:05] LABS: ALT 112 U/L (4-34); AST 99 U/L (14-36); African American GFR (CKD) >90 (>60 ml/min/1.73 sqM); Albumin 4.4 g/dL (3.5-5.0); Alkaline Phosphatase 251 U/L (38-126); Amylase 103 U/L (30-110); Anion Gap 14 mmol/L; Blood Urea Nitrogen 17 mg/dL (7-17); Calcium 9.4 mg/dL (8.4-10.2); Carbon Dioxide 24 mmol/L (22-30); Chloride 100 mmol/L (98-107); Glucose 136 mg/dL (74-99); Lipase 115 U/L (23-300); Non-African American GFR(CKD) >90 (>60 ml/min/1.73 sqM); Sodium 138 mmol/L (137-145); Total Bilirubin 0.4 mg/dL (0.2-1.3); Total Protein 7.4 g/dL (6.3-8.2)
[2022-08-23 23:25] LABS: Potassium 4.1 mmol/L (3.5-5.1)
[2022-08-23] MEDS ORDERED: HYDROmorphone 1 MG/ML 1 ML SYRINGE IVP STA (23:42)
[2022-08-24] MEDS ORDERED: diphenhydrAMINE 50 MG/ML 1 ML VIAL IVP STA (00:13)
[2022-08-24 00:25] VITALS: RESP 16
[2022-08-24] MEDS ORDERED: ONDANSETRON 4 MG ODT STARTER PACK 2 TAB BTL PO STA (01:34)
[2022-08-24] MEDS ORDERED: traMADol 50 MG STARTER PACK 3 TAB BTL PO STA (01:34)
[2022-08-24 01:46] VITALS: BP 125/82; PULSE 72; TEMP 98
--- NOTE | 2022-08-24 11:35 | CT ---
EXAMINATION TYPE: CT abdomen pelvis w con DATE OF EXAM: 08/23/2022 COMPARISON: None HISTORY: abdominal pain that radiates to Pt. back. no prior on PACS CT DLP: 730.5 mGycm Automated exposure control for dose reduction was used. CONTRAST: Performed with IV Contrast, patient injected with 100ml mL of Isovue 300. Images obtained from the diaphragm to the floor the pelvis with the IV contrast. The lung bases are c lear. No pleural effusion. Heart size is normal. No pericardial effusion. Liver spleen and stomach pa ncreas appear intact. The bile duct are not dilated. Gallbladder appears absent. There is no adrenal mass. Kidneys show satisfactory contrast opacification. No hydronephrosis. Ureter s are not dilated. No retroperitoneal adenopathy. Bladder distends smoothly. No inguinal hernia. No f ree fluid in the pelvis. No pelvic mass. The delayed images show normal renal excretion. Appendix not seen. No sign of thickened appendix. The re is no mesenteric edema. No ascites or free air. No sign of a bowel obstruction. The lumbar vertebrae have normal alignment. Disc spaces are normal. No compression fracture. Posterio r elements are intact. The bony pelvis is intact. Hip joints are intact. IMPRESSION: Negative CT scan abdomen and pelvis. Gallbladder and appendix appear absent.
--- NOTE | 2022-08-24 11:35 | US ---
EXAMINATION TYPE: US gallbladder DATE OF EXAM: 08/23/2022 COMPARISON: CLINICAL HISTORY: pain. RUQ pain. GB removed x >1 year ago TECHNIQUE: Multiple sonographic images of the right upper quadrant are obtained. FINDINGS: EXAM MEASUREMENTS: Liver Length: 13.5 cm CBD: 0.3 cm Right Kidney: 10.1 x 4.6 x 5.1 cm Pancreas: Tail obscured by overlying bowel gas Liver: wnl Gallbladder: Surgically absent Evidence for sonographic Krishnamurthy's sign: neg CBD: wnl Right Kidney: No hydronephrosis or masses seen IMPRESSION: There is cholecystectomy. No dilated ducts. No focal liver defect. No evidence of pancreatic mass. No ascites.
== END 2022-08-24 01:48 | disposition home or self-care (01) ==
LOC: EC 21:33
DX: R10.13 Epigastric pain (principal); Z88.2 Allergy status to sulfonamides
CPT/HCPCS: 36415; 93005; 80053; 82150; 83605; 83690; 85025; 85610; 85730; 76705; 74177; 99284; 96374; 96375 ×4; 96361 ×2; J2270; J1200; J2405; J1170; J1885; S0119; Q9967